=== PATIENT | male | born 1975 | race Caucasian/White ===

== ENCOUNTER 2025-08-26 20:13 | Observation (INO) | payer OTHER ==
[~2025-08-26] VITALS: Ht 185.4 cm; Wt 144.0 kg
[2025-08-26 22:20] LABS: KETONE, URINE AUTO RFX NEGATIVE (NEGATIVE); LEUKOCYTE ESTERASE UR AUTO RFX NEGATIVE (NEGATIVE); MUCUS, URINE RFX SMALL (NEGATIVE); NITRITE, URINE AUTO RFX NEGATIVE (NEGATIVE); RBC, URINE AUTO RFX 0 /HPF (0-3); SQUAM EPITHELIAL CELL UR AURFX 0 /HPF (0-6); WBC, URINE AUTO RFX 0 /HPF (0-3)
[2025-08-26 23:16] LABS: BASO # 0.1 10^3/uL (0.0-0.2); BASO % 1.0 % (0.0-1.0); EOS # 1.0 10^3/uL (0.0-0.5); EOS % 7.2 % (0.0-3.0); LYMPH # 3.2 10^3/uL (1.5-5.0); LYMPH % 23.4 % (24.0-44.0); MONO # 0.9 10^3/uL (0.0-0.8); MONO % 6.6 % (2.0-8.0); NEUTROPHILS # 8.2 10^3/uL (1.5-8.5); NEUTROPHILS % 60.8 % (36.0-66.0); PLATELET COUNT, AUTOMATED 261 10^3/uL (150-450)
[2025-08-26 23:16] LABS: Trichomonas vaginalis (AMP) NOT DETECTED (NEGATIVE)
[2025-08-26 23:34] LABS: C REACTIVE PROTEIN QUANTITATIV < 0.50 MG/DL (<1.0); CALCIUM LEVEL 9.8 MG/DL (8.5-10.1); CARBON DIOXIDE LEVEL 28 MMOL/L (20-31); CHLORIDE LEVEL 106 MMOL/L (98-107); CREATININE FOR GFR 1.15 MG/DL (0.70-1.30); GLOMERULAR FILTRATION RATE 77.5 (>56); POTASSIUM SERUM 4.6 MMOL/L (3.5-5.1); SODIUM LEVEL 143 MMOL/L (136-145)
[2025-08-26 23:40] LABS: GC DNA AMPLIFICATION NEGATIVE (NEGATIVE)
[2025-08-27] MEDS ORDERED: ISOVUE-370 76% 100 ML VIAL As Ordered ONE (00:17)
[2025-08-27] MEDS ORDERED: VANCOMYCIN HCL 2,000 MG in IV FLUID PLACE HOLDER 1 EA IV ONE (02:25)
[2025-08-27] MEDS: CLINDAMYCIN 600 MG in IV 1 EA IV ONE (02:34)
[2025-08-27] MEDS: NS (Normal Saline) 0.9% 1,000 ML IV ONE (02:34)
[2025-08-27] MEDS ORDERED: MOM 30 ML SUSPENSION UDC PO PRN (03:30)
[2025-08-27] MEDS: VANCOMYCIN HCL 2,000 MG, VIAL MATE ADAPTER 1 EACH in NS 500 ML IV ONE (03:33)
[2025-08-27] MEDS: PIPERACILLIN/TAZOBACTAM SOD 4.5 GM in DEXTROSE 5% (D5W) ADV/MINI-BAG 50 ML IV SCH (06:21)
[2025-08-27] MEDS ORDERED: HOME MED LIST COMPLETE! XX SCH (07:50)
[2025-08-27 08:00] VITALS: BP 108/75; TEMP 98.7; O2SAT 99
[2025-08-27] MEDS: ENOXAPARIN 40 MG/0.4 ML SYRINGE (J1650 PER 10MG) SC SCH (09:00)
[2025-08-27 10:46] LABS: CALCIUM LEVEL 9.1 MG/DL (8.5-10.1); CARBON DIOXIDE LEVEL 28 MMOL/L (20-31); CHLORIDE LEVEL 104 MMOL/L (98-107); CREATININE FOR GFR 1.01 MG/DL (0.70-1.30); GLOMERULAR FILTRATION RATE > 90.0 (>56); POTASSIUM SERUM 4.2 MMOL/L (3.5-5.1); SODIUM LEVEL 141 MMOL/L (136-145)
[2025-08-27 12:00] VITALS: BP 155/78; TEMP 98.2; O2SAT 98
[2025-08-27] MEDS ORDERED: VANCOMYCIN HCL 1,000 MG, VIAL MATE ADAPTER 1 EACH in NS 250 ML IV SCH (12:00)
[2025-08-27] MEDS: VANCOMYCIN HCL 1,250 MG, VIAL MATE ADAPTER 1 EACH in NS 250 ML IV SCH (12:44)
[2025-08-27] MEDS: ACETAMINOPHEN 325 MG TAB PO PRN (18:52)
[2025-08-28 03:59] VITALS: BP 152/88; TEMP 98.6; O2SAT 96
[2025-08-28 06:24] LABS: BASO # 0.1 10^3/uL (0.0-0.2); BASO % 0.7 % (0.0-1.0); EOS # 0.8 10^3/uL (0.0-0.5); EOS % 8.1 % (0.0-3.0); LYMPH # 1.4 10^3/uL (1.5-5.0); LYMPH % 13.6 % (24.0-44.0); MONO # 0.7 10^3/uL (0.0-0.8); MONO % 6.6 % (2.0-8.0); NEUTROPHILS # 7.3 10^3/uL (1.5-8.5); NEUTROPHILS % 70.0 % (36.0-66.0); PLATELET COUNT, AUTOMATED 230 10^3/uL (150-450)
[2025-08-28 06:46] LABS: CALCIUM LEVEL 9.3 MG/DL (8.5-10.1); CARBON DIOXIDE LEVEL 26.0 MMOL/L (20-31); CHLORIDE LEVEL 105.0 MMOL/L (98-107); CREATININE FOR GFR 1.17 MG/DL (0.70-1.30); GLOMERULAR FILTRATION RATE 76.0 (>56); POTASSIUM SERUM 4.2 MMOL/L (3.5-5.1); SODIUM LEVEL 142.0 MMOL/L (136-145)
[2025-08-28] MEDS: LINEZOLID 600 MG TABLET PO SCH (11:25)
[2025-08-28 12:00] VITALS: BP 143/89; TEMP 98.6; O2SAT 96
[2025-08-28] MEDS: FAMOTIDINE IV BAG 20 MG in IV 1 EA IV ONE (18:22)
[2025-08-28 20:09] VITALS: BP 142/80; TEMP 99.1; O2SAT 95
[2025-08-28] MEDS: AUGMENTIN 875 MG TAB PO SCH (21:16)
[2025-08-28] MEDS: DOXYCYCLINE HYCLATE 100 MG TABLET PO SCH (21:16)
[2025-08-29 04:17] VITALS: BP 139/70; TEMP 98.7; O2SAT 96
[2025-08-29 07:52] LABS: BASO # 0.1 10^3/uL (0.0-0.2); BASO % 1.0 % (0.0-1.0); EOS # 0.9 10^3/uL (0.0-0.5); EOS % 9.2 % (0.0-3.0); LYMPH # 2.2 10^3/uL (1.5-5.0); LYMPH % 23.1 % (24.0-44.0); MONO # 0.7 10^3/uL (0.0-0.8); MONO % 7.0 % (2.0-8.0); NEUTROPHILS # 5.6 10^3/uL (1.5-8.5); NEUTROPHILS % 58.6 % (36.0-66.0); PLATELET COUNT, AUTOMATED 222 10^3/uL (150-450)
[2025-08-29] MEDS ORDERED: DOXY100T PO (10:51)
[2025-08-29] MEDS ORDERED: AMOX875T2 PO ×2 (10:51→12:06)
[2025-08-29 12:00] VITALS: BP 152/82; TEMP 98.7; O2SAT 95
== END 2025-08-29 12:57 | disposition home or self-care (01) ==
LOC: M ED 20:13 → M ED INP 20:14 → M MSPAV 08-28 03:54
PROVIDERS: ADMIT Internal Medicine; ATTEND Student in an Organized Health Care Education/Training Program
DX: N49.2 Inflammatory disorders of scrotum (principal); D72.829 Elevated white blood cell count, unspecified; E66.9 Obesity, unspecified; L29.9 Pruritus, unspecified; T36.8X5A Adverse effect of other systemic antibiotics, initial encounter; Z90.89 Acquired absence of other organs; Z98.52 Vasectomy status; Z11.3 Encounter for screening for infections with a predominantly sexual mode of transmission; Z72.89 Other problems related to lifestyle
CPT/HCPCS: 36415; 72193; 76870; 80048; 80202; 81001; 83605; 84145; 85025; 85652; 86063; 86140; 87040; 87641; 87661; 87810; 87850; 93976; 96365; 96366; 96367; 96368; 96375; 96376; 99284; G0378; J0737; J1308; J2543; J3374; Q9967